=== PATIENT | female | born 1995 | race Hispanic/Latino ===

== ENCOUNTER 2017-08-02 11:10 | Emergency (ER) | payer SELFPAY ==
[2017-08-02] MEDS ORDERED: DIPHENHYDRAMINE HCL 25 MG CAPSULE ONE (11:38)
== END 2017-08-02 11:45 | disposition home or self-care (01) ==
LOC: EDH 11:10
DX: T78.40XA Allergy, unspecified, initial encounter (principal); X58.XXXA Exposure to other specified factors, initial encounter
CPT/HCPCS: 99282; Q0163